=== PATIENT | male | born 1940 | race Caucasian/White ===

== ENCOUNTER 2018-06-27 20:27 | Inpatient (IN) | payer MEDICARE ==
[~2018-06-27] VITALS: Ht 167.6 cm; Wt 65.3 kg
[~2018-06-27 20:27] MED LIST: APIX5TAB PO; ASPI-484 PO; ATOR40TA PO; BISO5TAB2 PO; CITA10TA4 PO; CLOP75TA PO; FERR325T59 PO; FURO-81 PO; Ipratropium/Albuterol Sulfate IH; OMEP20CA12 PO; POTA10CA PO; POTA20TA14 PO
[2018-06-27 20:35] VITALS: BP 118/57
--- NOTE | 2018-06-27 20:37 | NUR ---
DUONEB RT CALLED AT THIS TIME FOR DUONEB BREATHING TREATMENT
[2018-06-27] MEDS ORDERED: DUONEB 0.5 MG-3 MG/3 ML SOLN IH ONE (20:39)
[2018-06-27] MEDS ORDERED: DUONEB 0.5 MG-3 MG/3 ML SOLN IH STA (20:44)
[2018-06-27] MEDS ORDERED: SOLU-MEDROL IV STA (20:44)
--- NOTE | 2018-06-27 20:44 | ER.PDOC ---
General Chief Complaint: Dyspnea/Respdistress Stated Complaint: HYPOXIA Time seen by MD: 20:36 Source: patient Exam Limitations: other (Very [place], poor insight.) History of Present Illness Initial Comments Poor historian. Increasing SOB today. Hx COPD. Smokes 1 pack q 3 days. Timing/Duration: other Severity: moderate Activities at Onset: none Prior Episodes/Possible Cause: occasional episodes Modifying Factors: improves with albuterol inhaler, improves with albuterol nebulizer Associated Symptoms: denies symptoms Allergies: Coded Allergies: No Known Allergies (Unverified , 01/28/17) Home Meds Active Scripts [Ipratropium/Albuterol Sulfate] 3 ML AMPUL.NEB No Conflict Check, 3 ML IH TID, # 1 BOX 1 Refill Prov:IFRAH GARNER MD 06/08/18 Reported Medications Atorvastatin 40MG (LIPITOR 40MG) 40 Mg Tablet, 1 TAB PO HS, #90 TAB 3 Refills 07/19/17 Omeprazole (OMEPRAZOLE) 20 Mg Capsule.dr, 1 CAP PO DAILY, #30 CAP 0 Refills 01/06/16 Bisoprolol Fumarate (BISOPROLOL FUMARATE) 5 Mg Tablet, 1 TAB PO DAILY, #30 TAB 0 Refills 01/06/16 Clopidogrel Bisulfate (CLOPIDOGREL) 75 Mg Tablet, 1 TAB PO DAILY, #90 TAB 0 Refills 01/06/16 Past Medical History Medical History: cardiac problems, congestive heart failure, COPD, hypertension Surgical History: cholecystectomy Social History Smoking: greater than 1 pack/day Alcohol Use: none Drug Use: none Review of Systems Constitutional: see HPI; denies diaphoresis, denies fever EENTM: no symptoms reported Respiratory: see HPI Cardiovascular: no symptoms reported Gastrointestinal: no symptoms reported Genitourinary: no symptoms reported Musculoskeletal: no symptoms reported Skin: no symptoms reported All Other Systems: Reviewed and Negative Physical Exam General Appearance: Moderate Distress HEENT: PERRL/EOMI, Normal ENT Inspection Neck: Non-Tender, Full Range of Motion Respiratory: chest non-tender, respiratory distress, decreased breath sounds, wheezing Cardiovascular: Normal Peripheral Pulses, Regular Rate, Rhythm, No Edema Gastrointestinal: Normal Bowel Sounds, No Organomegaly, No Pulsatile Mass Extremities: Normal Range of Motion, Non-Tender, Normal Inspection, No Pedal Edema Neurologic/Psychiatric: digital marketing associate II-XII NML as Tested, No Motor/Sensory Deficits Skin: Normal Color, Warm/Dry Lymphatic: No Adenopathy Results/Orders Results/Orders Laboratory Tests Test 06/27/18 20:53 06/27/18 20:57 Blood Gas Sample Site RT RADIAL ARTERY Alejandro Test POSITIVE Lactic Acid (Blood Gas) 1.8 MMOL/L (0.5-1.0) White Blood Count 6.4 10^3/uL (4.5-11.0) Red Blood Count 3.99 10^6/uL (4.50-5.90) Hemoglobin 10.6 g/dL (13.9-16.3) Hematocrit 36.2 % (37.0-53.0) Mean Corpuscular Volume 90.7 fL (78-100) Mean Corpuscular Hemoglobin 26.6 pg (26-34) Mean Corpuscular Hemoglobin Concent 29.3 g/dL (33-37) Red Cell Distribution Width 17.1 % (11.5-14.5) Platelet Count 181 10^3/uL (150-400) Mean Platelet Volume 11.4 fL (7.8-11.0) Neutrophils (%) (Auto) 68.5 % (41.0-85.0) Lymphocytes (%) (Auto) 17.4 % (24.0-44.0) Monocytes (%) (Auto) 9.7 % (5.0-12.0) Neutrophils # (Auto) 4.4 10^3/uL (1.8-7.7) Lymphocytes # (Auto) 1.1 10^3/uL (1.0-4.8) Monocytes # (Auto) 0.6 10^3/uL (0.3-0.8) Absolute Immature Granulocyte (auto 0.01 10^3 u/L (0-2) Eosinophils % 3.3 % (0.0-5.0) Basophils % 0.9 % (0.0-0.2) Basophils # 0.1 10^3/uL (0.0-0.1) Eosinophil Count 0.2 10^3/uL (0.0-0.2) Sodium Level 141 mmol/L (132-145) Potassium Level 4.3 mmol/L (3.6-5.2) Chloride Level 104.0 mmol/L (96-109) Carbon Dioxide Level 29.8 mmol/L (20.0-32) Anion Gap 11.5 Blood Urea Nitrogen 16 mg/dL (7-18) Creatinine 1.64 mg/dL (0.59-1.40) Estimated GFR () 49.4 (>/=60) BUN/Creatinine Ratio 9.0 Glucose Level 142 mg/dL (70-110) Calcium Level 8.7 mg/dL (8.4-10.5) Total Bilirubin 0.6 mg/dL (0.2-1.0) Aspartate Amino Transf (AST/SGOT) 9 U/L (0-35) Alanine Aminotransferase (ALT/SGPT) 12 U/L (12-78) Alkaline Phosphatase 106 U/L (50-136) Troponin I < 0.02 ng/mL (0.00-0.05) Pro-B-Type Natriuretic Peptide 665 pg/mL (0-450) Total Protein 6.8 g/dL (6.4-8.2) Albumin 3.2 g/dL (3.4-5.0) Globulin 3.6 Percent Immature Gran (Cell Imm) 0.20 % (0.00-0.50) Administered Medications Medications (Trade) Dose Ordered Sig/Annabelle Route PRN Reason Start Time Stop Time Status Last Admin Dose Admin Methylprednisolone Sodium Succinate (Solu-Medrol) 125 mg STAT STAT IV 06/27/18 20:44 06/27/18 20:46 DC 06/27/18 21:08 Albuterol/ Ipratropium (Duoneb 0.5 Mg-3 Mg/3 ml Soln) 3 ml STAT STAT IH 06/27/18 20:44 06/27/18 20:46 DC 06/27/18 20:44 Albuterol Sulfate (Ventolin) 2.5 mg STAT STAT IH 06/27/18 21:24 06/27/18 21:26 DC 06/27/18 21:24 Albuterol Sulfate (Ventolin) 2.5 mg STAT STAT IH 06/27/18 21:24 06/27/18 21:26 DC 06/27/18 21:24 Sodium Chloride 1,000 ml @ 1,200 mls/hr Q50M ONCE IV 06/27/18 22:00 06/27/18 22:49 06/27/18 21:39 Progress Progress 2124 Some increased aeration of lung acosta. Still wheezing, still hypoxic. 89% on RA. D/W Dr. Bynum at 2215 hrs. Admit. EKG/XRAY/CT/US EKG: NSR EKG Comments: 72/min. Nml axis. Nml EKG. XRAY Comments: Small L basilar infiltrate. Departure Time of Disposition: 22:16 Disposition: 09 ADMITTED INPATIENT Impression: Primary Impression: Respiratory failure with hypoxia Additional Impression: Pneumonia Condition: Stable Referrals: JESSE GARCIA MD (PCP) PRIMARY CARE PROVIDER Duration or Time Spent with Pa: 90 Problem Qualifiers PHILIP INFANTE DO Jun 27, 2018 20:44
[2018-06-27 21:02] LABS: BASOPHIL # 0.1 10^3/uL (0.0-0.1); BASOPHIL % 0.9 % (0.0-0.2); EOSINOPHIL # 0.2 10^3/uL (0.0-0.2); EOSINOPHIL % 3.3 % (0.0-5.0); HEMOGLOBIN 10.6 g/dL (13.9-16.3); LYMPHOCYTES # 1.1 10^3/uL (1.0-4.8); LYMPHOCYTES % 17.4 % (24.0-44.0); MEAN CELL HGB 26.6 pg (26-34); MEAN CELL HGB CONCENTRATION 29.3 g/dL (33-37); MEAN CORP VOLUME 90.7 fL (78-100); MEAN PLATELET VOLUME 11.4 fL (7.8-11.0); MONOCYTES # 0.6 10^3/uL (0.3-0.8); MONOCYTES % 9.7 % (5.0-12.0); NEUTROPHIL # 4.4 10^3/uL (1.8-7.7); NEUTROPHILS % 68.5 % (41.0-85.0); RED CELL DISTRIBUTION WIDTH 17.1 % (11.5-14.5); WHITE BLOOD CELL 6.4 10^3/uL (4.5-11.0)
[2018-06-27] MEDS ORDERED: SOLU-MEDROL ONE (21:02)
--- NOTE | 2018-06-27 21:05 | DIREP ---
PROCEDURE:CHEST 1 VIEW COMPARISON:[facility], CR, XRAY CHEST SINGLE VW, 06/07/2018, 01:23 PM. [facility], CR, XRAY CHEST SINGLE VW, 05/18/2018, 11:25 PM. INDICATIONS:SOB FINDINGS: LUNGS/PLEURA:Trace right lower lobe and moderate left lower lobe and lingular patchy airspace opacities. Upper lobes are clear. The pulmonary vasculature is not engorged. VASCULATURE:Normal. Unremarkable pulmonary vasculature. CARDIAC:Normal. No cardiac silhouette abnormality or cardiomegaly. Left-sided dual lead pacemaker. MEDIASTINUM:Atherosclerotic aorta with no visible aneurysm. BONES:Mild degenerative changes of the shoulders. OTHER:Negative. CONCLUSION:Bilateral lower lobe pneumonia. Dictated by: Jimenez Maravilla MD on 06/27/2018 at 09:02 PM
--- NOTE | 2018-06-27 21:12 | PCM.EKG ---
[facility] Test Date: 2018-06-27 Test Time: 21:15:03 Pat Name: TYSON LOWE Department: Room: 312 Gender: M Podiatrist: : 1940 Requested By: PHILIP DE LA TORRE Order Number: [id number] Reading MD: Philip De La Torre Measurements Intervals [place] Rate: 72 P: -4 MO: 150 QRS: 70 QRSD: 86 T: 47 QT: 384 QTc: 420 Interpretive Statements Normal sinus rhythm with sinus arrhythmia Normal ECG Compared to ECG 06/07/2018 13:46:10 AV dual-paced complex(es) or rhythm no longer present Electronically Signed On 07-01-2018 3:55:12 CDT by Philip De La Torre Please click the below link to view image of tracing.
[2018-06-27] MEDS ORDERED: VENTOLIN IH STA ×2 (21:24)
[2018-06-27 21:28] LABS: ALANINE AMINOTRANSFERASE(ML) 12 U/L (12-78); ALKALINE PHOSPHATASE 106 U/L (50-136); ASPARTATE AMINO TRANSFERASE 9 U/L (0-35); CALCIUM 8.7 mg/dL (8.4-10.5); CARBON DIOXIDE 29.8 mmol/L (20.0-32); GLUCOSE 142 mg/dL (70-110)
[2018-06-27 21:30] VITALS: BP 101/73
[2018-06-27] MEDS ORDERED: NS 1000ML 1,000 ML ONE (21:34)
[2018-06-27] MEDS ORDERED: VENTOLIN IH ONE (21:41)
[2018-06-27] MEDS ORDERED: NS 1000ML 1,000 ML IV ONE (22:00)
[2018-06-27] MEDS ORDERED: LEVAQUIN 100 ML IV ONE ×2 (22:00→22:21)
--- NOTE | 2018-06-27 22:04 | NUR ---
KAREN INFANTE ON PHONE WITH DR JONES AT THIS TIME REGARDING POSSIBLE ADMISSION OF PT.
[2018-06-27 22:30] VITALS: BP 132/58
--- NOTE | 2018-06-27 22:40 | NUR ---
TRANSFER TO [place] VIA WHEELCHAIR ON 2L/NC BEDSIDE REPORT GIVEN MARYSOL HOFFMANN
[2018-06-27] MEDS ORDERED: VENTOLIN IH PRN (23:00)
[2018-06-27] MEDS ORDERED: TYLENOL PO PRN (23:00)
[2018-06-27] MEDS ORDERED: ZOFRAN IV PRN (23:00)
[2018-06-27] MEDS ORDERED: LOVENOX SQ SCH (23:00)
[2018-06-28 00:46] VITALS: BP 136/78
[2018-06-28 01:19] VITALS: BP 136/78
[2018-06-28] MEDS: DUONEB 0.5 MG-3 MG/3 ML SOLN IH SCH ×2 (02:22→08:51)
[2018-06-28 05:56] LABS: BASOPHIL % 0.1 % (0.0-0.2); HEMOGLOBIN 10.3 g/dL (13.9-16.3); LYMPHOCYTES # 0.2 10^3/uL (1.0-4.8); LYMPHOCYTES % 3.4 % (24.0-44.0); MEAN CELL HGB 26.2 pg (26-34); MEAN CELL HGB CONCENTRATION 28.9 g/dL (33-37); MEAN CORP VOLUME 90.6 fL (78-100); MONOCYTES % 0.6 % (5.0-12.0); NEUTROPHIL # 6.8 10^3/uL (1.8-7.7); NEUTROPHILS % 95.6 % (41.0-85.0); WHITE BLOOD CELL 7.1 10^3/uL (4.5-11.0)
[2018-06-28 06:22] LABS: CALCIUM 8.4 mg/dL (8.4-10.5); CARBON DIOXIDE 28.8 mmol/L (20.0-32)
[2018-06-28 06:49] VITALS: BP 161/79
--- NOTE | 2018-06-28 06:51 | NUR ---
REPORT TO SILVIA OATES
[2018-06-28 07:25] VITALS: BP 124/54
[2018-06-28 07:39] LABS: BAND NEUTROPHILS 8 % (2-6); LYMPHOCYTE 2 % (25-36); SEGMENTED NEUTROPHILS 90 % (31-76)
[2018-06-28] MEDS ORDERED: ZITHROMAX 500 MG in NS 250ML 250 ML IV SCH (08:00)
[2018-06-28] MEDS ORDERED: AZIT250T PO (08:38)
[2018-06-28] MEDS ORDERED: Ipratropium/Albuterol Sulfate IH (08:38)
[2018-06-28] MEDS ORDERED: PRED20TA PO (08:38)
--- NOTE | 2018-06-28 08:41 | PRM.DC ---
Discharge Summary Date of Discharge: Jun 28, 2018 Reason for Visit: Shortness of breath Patient History: Patient reports no known family medical history. History Present Illness: (1) Chronic renal failure, stage 3 (moderate) Status: Chronic ICD Code: N18.3 - Chronic kidney disease, stage 3 (moderate) SNOMED: 12274291, 434459093 (2) Hypertension Status: Chronic ICD Code: I10 - Essential (primary) hypertension SNOMED: 46281096 (3) COPD exacerbation Status: Acute ICD Code: J44.1 - Chronic obstructive pulmonary disease with (acute) exacerbation SNOMED: 212689156 General: Alert, Oriented X3, Cooperative, No acute distress HEENT: PERRLA, EOMI Neck: Supple, No JVD Lungs: Clear to auscultation, Normal air movement Heart: Regular rate, Normal S1, Normal S2 Abdomen: Normal bowel sounds, Soft, No tenderness Extremities: No clubbing, No cyanosis, No edema Skin: No breakdown Neuro: Normal speech, Strength at 5/5 X4 ext, Cranial nerves 3-12 NL Psych/Mental Status: Mood NL Results(Labs/Rad) Laboratory Tests Test 06/27/18 20:53 06/27/18 20:57 06/28/18 05:10 06/28/18 06:27 Blood Gas Sample Site RT RADIAL ARTERY Alejandro Test POSITIVE Lactic Acid (Blood Gas) 1.8 MMOL/L White Blood Count 6.4 10^3/uL 7.1 10^3/uL Red Blood Count 3.99 10^6/uL 3.93 10^6/uL Hemoglobin 10.6 g/dL 10.3 g/dL Hematocrit 36.2 % 35.6 % Mean Corpuscular Volume 90.7 fL 90.6 fL Mean Corpuscular Hemoglobin 26.6 pg 26.2 pg Mean Corpuscular Hemoglobin Concent 29.3 g/dL 28.9 g/dL Red Cell Distribution Width 17.1 % 17.0 % Platelet Count 181 10^3/uL 174 10^3/uL Mean Platelet Volume 11.4 fL 12.0 fL Neutrophils (%) (Auto) 68.5 % 95.6 % Lymphocytes (%) (Auto) 17.4 % 3.4 % Monocytes (%) (Auto) 9.7 % 0.6 % Neutrophils # (Auto) 4.4 10^3/uL 6.8 10^3/uL Lymphocytes # (Auto) 1.1 10^3/uL 0.2 10^3/uL Monocytes # (Auto) 0.6 10^3/uL 0.0 10^3/uL Absolute Immature Granulocyte (auto 0.01 10^3 u/L 0.02 10^3 u/L Eosinophils % 3.3 % 0.0 % Basophils % 0.9 % 0.1 % Basophils # 0.1 10^3/uL 0.0 10^3/uL Eosinophil Count 0.2 10^3/uL 0.0 10^3/uL Sodium Level 141 mmol/L 140 mmol/L Potassium Level 4.3 mmol/L 4.4 mmol/L Chloride Level 104.0 mmol/L 103.0 mmol/L Carbon Dioxide Level 29.8 mmol/L 28.8 mmol/L Anion Gap 11.5 12.6 Blood Urea Nitrogen 16 mg/dL 17 mg/dL Creatinine 1.64 mg/dL 1.67 mg/dL Estimated GFR () 49.4 48.4 BUN/Creatinine Ratio 9.0 10.0 Glucose Level 142 mg/dL 187 mg/dL Calcium Level 8.7 mg/dL 8.4 mg/dL Total Bilirubin 0.6 mg/dL Aspartate Amino Transf (AST/SGOT) 9 U/L Alanine Aminotransferase (ALT/SGPT) 12 U/L Alkaline Phosphatase 106 U/L Troponin I < 0.02 ng/mL Pro-B-Type Natriuretic Peptide 665 pg/mL Total Protein 6.8 g/dL Albumin 3.2 g/dL Globulin 3.6 Percent Immature Gran (Cell Imm) 0.20 % 0.30 % Differential Total Cells Counted 100 #CELLS Segmented Neutrophils 90 % Band Neutrophils 8 % Lymphocytes 2 % Platelet Estimate ADEQUATE Platelet Morphology ABNORMAL Scheduled Atorvastatin 40MG (Lipitor 40MG), 1 TAB PO HS, (Reported) Azithromycin (Zithromax), 250 MG PO DAILY24 Bisoprolol Fumarate (Bisoprolol Fumarate), 1 TAB PO DAILY, (Reported) Clopidogrel Bisulfate (Clopidogrel), 1 TAB PO DAILY, (Reported) Omeprazole (Omeprazole), 1 CAP PO DAILY, (Reported) Prednisone (Prednisone), 20 MG PO DAILY24 [Ipratropium/Albuterol Sulfate], 3 ML IH TID Sepsis Evaluation @ Discharge 06/28/18 05:00 Course Sepsis Screening Results: Posi: POSITIVE Sepsis Qualifier/Stage: SEPSIS RISK Vitals & review Data Vital Sign - Last 24 Hours 06/27/18 06/27/18 06/27/18 06/27/18 20:32 20:32 20:35 20:46 Temp 98.8 98.8 98.8 98.8 98.8 98.8 Pulse 76 76 76 70 Resp 16 16 16 26 B/P (MAP) 118/57 (77) Pulse Ox 91 91 92 O2 Delivery Room Air Room Air 06/27/18 06/27/18 06/27/18 06/27/18 20:47 21:30 21:50 21:51 Pulse 70 69 70 72 Resp 18 20 18 B/P (MAP) 101/73 (82) Pulse Ox 92 89 92 92 O2 Delivery Room Air 06/27/18 06/27/18 06/27/18 06/27/18 21:52 21:53 22:30 22:57 Temp 98.8 Pulse 71 72 81 81 Resp 20 20 16 16 B/P (MAP) 132/58 (82) Pulse Ox 92 92 95 95 O2 Delivery Nasal Canula Nasal Canula O2 Flow Rate 2.00 06/27/18 06/27/18 06/28/18 06/28/18 23:01 23:02 00:30 00:46 Temp 97.5 Pulse 70 Resp 18 B/P (MAP) 136/78 (97) Pulse Ox 95 94 O2 Delivery Nasal Cannula Nasal Cannula Nasal Cannula O2 Flow Rate 2.00 2.00 06/28/18 06/28/18 06/28/18 06/28/18 01:42 01:45 02:25 02:27 Pulse 85 87 Resp 20 18 20 Pulse Ox 92 95 95 O2 Delivery Nasal Cannula 06/28/18 06/28/18 06:49 07:25 Temp 97.7 97.3 Pulse 77 78 Resp 18 18 B/P (MAP) 161/79 (106) 124/54 (77) Pulse Ox 89 O2 Delivery Room Air Nasal Canula O2 Flow Rate 2.00 Intake and Output 06/27/18 06/27/18 06/28/18 15:00 23:00 07:00 Intake Total 322 ml Balance 322 ml Laboratory Tests Test 06/27/18 20:53 06/27/18 20:57 06/28/18 05:10 06/28/18 06:27 Blood Gas Sample Site RT RADIAL ARTERY Alejandro Test POSITIVE Lactic Acid (Blood Gas) 1.8 MMOL/L White Blood Count 6.4 10^3/uL 7.1 10^3/uL Red Blood Count 3.99 10^6/uL 3.93 10^6/uL Hemoglobin 10.6 g/dL 10.3 g/dL Hematocrit 36.2 % 35.6 % Mean Corpuscular Volume 90.7 fL 90.6 fL Mean Corpuscular Hemoglobin 26.6 pg 26.2 pg Mean Corpuscular Hemoglobin Concent 29.3 g/dL 28.9 g/dL Red Cell Distribution Width 17.1 % 17.0 % Platelet Count 181 10^3/uL 174 10^3/uL Mean Platelet Volume 11.4 fL 12.0 fL Neutrophils (%) (Auto) 68.5 % 95.6 % Lymphocytes (%) (Auto) 17.4 % 3.4 % Monocytes (%) (Auto) 9.7 % 0.6 % Neutrophils # (Auto) 4.4 10^3/uL 6.8 10^3/uL Lymphocytes # (Auto) 1.1 10^3/uL 0.2 10^3/uL Monocytes # (Auto) 0.6 10^3/uL 0.0 10^3/uL Absolute Immature Granulocyte (auto 0.01 10^3 u/L 0.02 10^3 u/L Eosinophils % 3.3 % 0.0 % Basophils % 0.9 % 0.1 % Basophils # 0.1 10^3/uL 0.0 10^3/uL Eosinophil Count 0.2 10^3/uL 0.0 10^3/uL Sodium Level 141 mmol/L 140 mmol/L Potassium Level 4.3 mmol/L 4.4 mmol/L Chloride Level 104.0 mmol/L 103.0 mmol/L Carbon Dioxide Level 29.8 mmol/L 28.8 mmol/L Anion Gap 11.5 12.6 Blood Urea Nitrogen 16 mg/dL 17 mg/dL Creatinine 1.64 mg/dL 1.67 mg/dL Estimated GFR () 49.4 48.4 BUN/Creatinine Ratio 9.0 10.0 Glucose Level 142 mg/dL 187 mg/dL Calcium Level 8.7 mg/dL 8.4 mg/dL Total Bilirubin 0.6 mg/dL Aspartate Amino Transf (AST/SGOT) 9 U/L Alanine Aminotransferase (ALT/SGPT) 12 U/L Alkaline Phosphatase 106 U/L Troponin I < 0.02 ng/mL Pro-B-Type Natriuretic Peptide 665 pg/mL Total Protein 6.8 g/dL Albumin 3.2 g/dL Globulin 3.6 Percent Immature Gran (Cell Imm) 0.20 % 0.30 % Differential Total Cells Counted 100 #CELLS Segmented Neutrophils 90 % Band Neutrophils 8 % Lymphocytes 2 % Platelet Estimate ADEQUATE Platelet Morphology ABNORMAL Current Medications Medications (Trade) Dose Ordered Sig/Annabelle PRN Reason Start Time Stop Time Status Last Admin Acetaminophen (Tylenol) 1,000 mg Q6H PRN PAIN MILD 06/27/18 23:00 07/27/18 22:59 UNV Albuterol Sulfate (Ventolin) 2.5 mg RTQ4 PRN WHEEZING 06/27/18 23:00 07/27/18 22:59 UNV Albuterol/ Ipratropium (Duoneb 0.5 Mg-3 Mg/3 ml Soln) 3 ml RTQ6H 06/27/18 23:00 07/27/18 22:59 UNV 06/28/18 02:22 Atorvastatin Calcium (Lipitor) 40 mg HS 06/28/18 21:00 07/28/18 20:59 UNV Azithromycin 500 mg/Sodium Chloride 250 ml @ 175 mls/hr Q24HRS 06/28/18 08:00 07/28/18 07:59 UNV Bisoprolol Fumarate (Zebeta) 5 mg DAILY 06/28/18 09:00 07/28/18 08:59 UNV Clopidogrel Bisulfate (Plavix) 75 mg DAILY 06/28/18 09:00 07/28/18 08:59 UNV Doxycycline Hyclate 100 mg/ Sodium Chloride 100 ml @ 100 mls/hr Q12HR 06/28/18 09:00 07/28/18 08:59 UNV Enoxaparin Sodium (Lovenox) 40 mg Q24HRS 06/27/18 23:00 07/27/18 22:59 UNV 06/27/18 23:14 Omeprazole (Prilosec) 20 mg DAILY 06/28/18 09:00 07/28/18 08:59 UNV Ondansetron HCl (Zofran) 4 mg Q4H PRN NAUSEA / VOMITING 06/27/18 23:00 07/27/18 22:59 UNV Plan Discharge Date: Jun 28, 2018 Dicharge DX: 1. COPD exacerbation, 2. Tobacco abuse, 3. Hypertension Discharge Disposition: Stable Plan Medications per discharge list Diet and activity as tolerated Stop smoking Follow up with PCP next week Discharge plans discussed with patient, he is his own decision maker and does understand and concur with plans Time spent 25 minutes LESVIA JONES MD Jun 28, 2018 08:40
[2018-06-28] MEDS ORDERED: PROTONIX PO SCH (09:00)
[2018-06-28] MEDS ORDERED: ZEBETA PO SCH (09:00)
[2018-06-28] MEDS ORDERED: VIBRAMYCIN 100 MG in NS 100ML 100 ML IV SCH (09:00)
[2018-06-28] MEDS ORDERED: PREDNISONE PO ONE (09:00)
[2018-06-28] MEDS ORDERED: PLAVIX PO SCH (09:00)
[2018-06-28 10:07] VITALS: BP 124/54
[2018-06-28] MEDS ORDERED: LIPITOR PO SCH (21:00)
== END 2018-06-28 10:50 | disposition home or self-care (01) | DRG 177 ==
LOC: ER 20:27 → MS 22:13
PROVIDERS: ADMIT Internal Medicine; ATTEND Internal Medicine
DX: J69.0 Pneumonitis due to inhalation of food and vomit (principal); J96.91 Respiratory failure, unspecified with hypoxia; J44.1 Chronic obstructive pulmonary disease with (acute) exacerbation; I13.0 Hypertensive heart and chronic kidney disease with heart failure and stage 1 through stage 4 chronic kidney disease, or unspecified chronic kidney disease; J44.0 Chronic obstructive pulmonary disease with (acute) lower respiratory infection; I50.9 Heart failure, unspecified; N18.3 Chronic kidney disease, stage 3 (moderate); F17.210 Nicotine dependence, cigarettes, uncomplicated; Z90.49 Acquired absence of other specified parts of digestive tract; Z79.02 Long term (current) use of antithrombotics/antiplatelets; Z79.899 Other long term (current) drug therapy
CPT/HCPCS: 36415; 36600; 71045; 80048; 80053; 83605; 83880; 84484; 85025; 87040; 93005; 94640; 96374; 99285; J0456; J1650; J1956; J2930; J7030; J7050; J7512; J7613; J7620; J3490